=== PATIENT | male | born 1955 | race Caucasian/White ===

== ENCOUNTER → 2019-07-20 16:43 | Outpatient (BNVA) | payer MEDICAID, SELFPAY | PROVIDERS: Family Provider Nurse Practitioner Family; PCP Nurse Practitioner; Visit Provider Nurse Practitioner | DX: E11.65 Type 2 diabetes mellitus with hyperglycemia (principal); J43.9 Emphysema, unspecified; F41.9 Anxiety disorder, unspecified; F32.9 Major depressive disorder, single episode, unspecified; J30.2 Other seasonal allergic rhinitis | CPT/HCPCS: 80053; 80061; 81000; 83036 ==

== ENCOUNTER → 2019-11-02 14:58 | Outpatient (BNVA) | payer MEDICAID, SELFPAY | PROVIDERS: Family Provider Nurse Practitioner Family; PCP Nurse Practitioner; Visit Provider Nurse Practitioner | DX: E11.65 Type 2 diabetes mellitus with hyperglycemia (principal); J43.9 Emphysema, unspecified; J30.2 Other seasonal allergic rhinitis; F41.9 Anxiety disorder, unspecified; F32.9 Major depressive disorder, single episode, unspecified; K21.9 Gastro-esophageal reflux disease without esophagitis; Z23 Encounter for immunization | CPT/HCPCS: 80053; 81000; 83036 ==

== ENCOUNTER → 2020-09-19 14:55 | Outpatient (BNVA) | payer MEDICAID, SELFPAY | PROVIDERS: Family Provider Nurse Practitioner Family; PCP Nurse Practitioner; Visit Provider Nurse Practitioner Family | DX: E11.65 Type 2 diabetes mellitus with hyperglycemia (principal); E78.2 Mixed hyperlipidemia; K21.9 Gastro-esophageal reflux disease without esophagitis; J43.9 Emphysema, unspecified; J30.2 Other seasonal allergic rhinitis | CPT/HCPCS: 80053; 80061; 83036; 84443; 85025 ==

== ENCOUNTER → 2021-03-04 15:44 | Outpatient (BNVA) | payer MEDICAID, SELFPAY | PROVIDERS: Family Provider Nurse Practitioner Family; PCP Nurse Practitioner; Visit Provider Nurse Practitioner | DX: E78.2 Mixed hyperlipidemia (principal); E11.65 Type 2 diabetes mellitus with hyperglycemia; J43.9 Emphysema, unspecified; J30.2 Other seasonal allergic rhinitis; F41.9 Anxiety disorder, unspecified; F32.9 Major depressive disorder, single episode, unspecified; K21.9 Gastro-esophageal reflux disease without esophagitis | CPT/HCPCS: 80053; 80061; 81000; 83036 ==

== ENCOUNTER → 2021-06-03 15:29 | Outpatient (BNVA) | payer MEDICAID, SELFPAY | PROVIDERS: Family Provider Nurse Practitioner Family; PCP Nurse Practitioner; Visit Provider Nurse Practitioner | DX: E11.65 Type 2 diabetes mellitus with hyperglycemia (principal); K21.9 Gastro-esophageal reflux disease without esophagitis; J43.9 Emphysema, unspecified; E78.2 Mixed hyperlipidemia; J30.2 Other seasonal allergic rhinitis; F41.9 Anxiety disorder, unspecified; F32.9 Major depressive disorder, single episode, unspecified | CPT/HCPCS: 80053; 80061; 81000; 83036 ==

== ENCOUNTER → 2021-11-10 16:31 | Outpatient (BNVA) | payer MEDICAID, SELFPAY | PROVIDERS: Family Provider Nurse Practitioner Family; PCP Nurse Practitioner; Visit Provider Nurse Practitioner | DX: J43.9 Emphysema, unspecified (principal); E78.2 Mixed hyperlipidemia; E11.65 Type 2 diabetes mellitus with hyperglycemia; K21.9 Gastro-esophageal reflux disease without esophagitis; J30.2 Other seasonal allergic rhinitis; F41.9 Anxiety disorder, unspecified; F32.9 Major depressive disorder, single episode, unspecified | CPT/HCPCS: 80053; 80061; 81000; 83036 ==

== ENCOUNTER → 2022-03-05 14:57 | Outpatient (BNVA) | payer MEDICAID, SELFPAY | PROVIDERS: Family Provider Nurse Practitioner Family; PCP Nurse Practitioner; Visit Provider Nurse Practitioner | DX: E11.65 Type 2 diabetes mellitus with hyperglycemia (principal) | CPT/HCPCS: 80053; 80061; 81000; 83036 ==

== ENCOUNTER → 2022-06-11 14:28 | Outpatient (BNVA) | payer MEDICAID, SELFPAY | PROVIDERS: Family Provider Nurse Practitioner Family; PCP Nurse Practitioner; Visit Provider Nurse Practitioner | DX: E11.65 Type 2 diabetes mellitus with hyperglycemia (principal) | CPT/HCPCS: 80053; 80061; 81000; 83036 ==

== ENCOUNTER → 2022-08-24 16:25 | Outpatient (BNVA) | payer MEDICAID, SELFPAY | PROVIDERS: Family Provider Nurse Practitioner Family; PCP Nurse Practitioner; Visit Provider Nurse Practitioner | DX: E11.65 Type 2 diabetes mellitus with hyperglycemia (principal) | CPT/HCPCS: 80053; 80061; 81000; 83036 ==

== ENCOUNTER → 2022-11-16 15:05 | Outpatient (BNVA) | payer MEDICAID, SELFPAY | PROVIDERS: Family Provider Nurse Practitioner Family; PCP Nurse Practitioner; Visit Provider Nurse Practitioner | DX: E11.65 Type 2 diabetes mellitus with hyperglycemia (principal); J43.9 Emphysema, unspecified; E78.2 Mixed hyperlipidemia; K21.9 Gastro-esophageal reflux disease without esophagitis; J30.2 Other seasonal allergic rhinitis; F41.9 Anxiety disorder, unspecified; F32.9 Major depressive disorder, single episode, unspecified | CPT/HCPCS: 80053; 81000; 83036; 86705; 86706; 86709; 86803; 87340 ==

== ENCOUNTER → 2022-11-19 11:59 | Outpatient (BNVA) | payer MEDICAID, SELFPAY | PROVIDERS: Family Provider Nurse Practitioner Family; PCP Nurse Practitioner; Visit Provider Nurse Practitioner | DX: E11.65 Type 2 diabetes mellitus with hyperglycemia (principal); J43.9 Emphysema, unspecified; E78.2 Mixed hyperlipidemia; K21.9 Gastro-esophageal reflux disease without esophagitis; J30.2 Other seasonal allergic rhinitis; F41.9 Anxiety disorder, unspecified; F32.9 Major depressive disorder, single episode, unspecified; E78.5 Hyperlipidemia, unspecified; R74.01 Elevation of levels of liver transaminase levels | CPT/HCPCS: 87522 ==

== ENCOUNTER → 2023-05-05 15:54 | Outpatient (BNVA) | payer MEDICAID, SELFPAY | PROVIDERS: Family Provider Nurse Practitioner Family; PCP Nurse Practitioner; Visit Provider Nurse Practitioner | DX: E11.65 Type 2 diabetes mellitus with hyperglycemia (principal); E78.2 Mixed hyperlipidemia | CPT/HCPCS: 80053; 80061; 81000; 83036 ==

== ENCOUNTER → 2023-12-28 16:37 | Outpatient (BNVA) | payer MEDICAID, SELFPAY | PROVIDERS: Family Provider Nurse Practitioner Family; PCP Nurse Practitioner; Visit Provider Nurse Practitioner | DX: E11.9 Type 2 diabetes mellitus without complications (principal) | CPT/HCPCS: 80053; 80061; 82607; 83036 ==

== ENCOUNTER → 2024-03-28 16:19 | Outpatient (BNVA) | payer MEDICAID, SELFPAY | PROVIDERS: Family Provider Nurse Practitioner Family; PCP Nurse Practitioner; Visit Provider Nurse Practitioner | DX: E78.2 Mixed hyperlipidemia (principal); E11.65 Type 2 diabetes mellitus with hyperglycemia | CPT/HCPCS: 80053; 80061; 83036 ==

== ENCOUNTER → 2024-07-13 15:46 | Outpatient (BNVA) | payer MEDICAID, SELFPAY | PROVIDERS: Family Provider Nurse Practitioner Family; PCP Nurse Practitioner; Visit Provider Nurse Practitioner | DX: E11.65 Type 2 diabetes mellitus with hyperglycemia (principal); E78.2 Mixed hyperlipidemia; Z12.5 Encounter for screening for malignant neoplasm of prostate | CPT/HCPCS: 80053; 81000; 83036; G0103 ==

== ENCOUNTER 2024-08-11 22:20 | Emergency (ER) | payer MEDICAID, SELFPAY ==
--- OUTSIDE RECORDS SUMMARY | 2024-08-11 22:29 | XMS_ITS | Clinical Summary ---
Author Organization [facility] Address [address] [place] [address] Phone Care Team Providers Care Operational Assistant Name Role Phone Unavailable Primary Care Provider Unavailabl e Allergies Active Allergy Reactions Criticality Noted Date Comments Aspirin Rash Low 06/12/2015 Penicillins Swelling Low 06/12/2015 Medications oxyCODONE-aceta minophen (PERCOCET) 5-325 mg tablet Take 1 Tablet by mouth every 4 hours as needed for Pain, Moderate. Active pravastatin (PRAVACHOL) 80 mg tablet Take 80 mg by mouth Daily LATE. Active sertraline (ZOLOFT) 100 mg tablet Take 100 mg by mouth daily. Active ranitidine (ZANTAC) 300 mg tablet Take 300 mg by mouth 2 times daily. Active ALPRAZolam (XANAX) 1 mg tablet Take 1 mg by mouth 3 times daily as needed for Anxiety. Active albuterol HFA 90 mcg inhaler Take 2 Puffs by inhalation every 6 hours as needed for Shortness of Breath. Active predniSONE (DELTASONE) 20 mg tablet Take 2 Tablet (40 mg) by mouth 2 times daily with meals. 28 Tablet None 6 Active HYDROcodone-crow taminophen (NORCO) 5-325 mg tablet Take 1 Tablet by mouth every 4 hours as needed for Pain, Moderate. Max Daily Amount: 6 Tablet 12 Tablet None 6 Active HYDROcodone-crow taminophen (NORCO) 5-325 mg tablet Take 1 Tablet by mouth every 4 hours as needed for Pain, Moderate. Max Daily Amount: 6 Tablet 4 Tablet None 6 Active Active Problems Problem Noted Date Diagnosed Date Cigarette dependence 06/12/2015 Social History Tobacco Use Types Packs/Day Years Used Date Smoking Tobacco: Every Day Cigarettes Alcohol Use Standard Drinks/Week Comments No 0 (1 standard drink = 0.6 oz pur e alcohol) Sex and Gender Information Value Date Recorded Sex Assigned at Not on file Legal Sex Male 7:26 PM CDT Gender Identity Not on file Sexual Orientation Not on file Last Filed Vital Signs Vital Sign Reading Time Taken Comments Blood Pressure 154/94 06/12/2015 8:37 PM CDT Pulse 106 06/12/2015 8:14 PM CDT Temperature 37.5 C (99.5 F) 06/12/2015 8:31 PM CDT Respiratory Rate 20 06/12/2015 8:37 PM CDT Oxygen Saturation 92% 06/12/2015 8:37 PM CDT Inhaled Oxygen Concentration - - Weight 80.3 kg (177 lb) 06/12/2015 7:31 PM CDT Height 168.9 cm (5' 6.5 ) 06/12/2015 7:31 PM CDT Body Mass Index 28.14 06/12/2015 7:31 PM CDT Plan of Treatment Health Maintenance Due Date Last Done Comments DTAP/TDAP/TD VACCINES (1 - Tdap) 09/05/1975 COLORECTAL SCREENING 2001 Colorectal Cancer Screening 2001 FIT-DNA Q 3 years 2001 FIT/FOBT Q 1 year 2001 Flex Sig/CT Colonography Q 5 years 2001 PNEUMOCOCCAL VACCINE 50+ YEARS (1 of 1 - PCV) 09/05/19 07 ZOSTER VACCINE (1 of 2) 2006 INFLUENZA VACCINE (#1) 2023 RSV VACCINE (60+ or ) (1 - 1-dose 75+ series) 09/05/2031
--- OUTSIDE RECORDS SUMMARY | 2024-08-11 22:29 | XMS_ITS | Clinical Summary ---
Author Organization [facility] Address [address] 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 Active sertraline HCl (ZOLOFT ORAL) Take 1 Tablet by mouth daily. Active OTHER Take 1 Tablet by mouth daily. Cholesterol medication does not know the name or dose Active OTHER Take 1 Tablet by mouth daily. Blood thinner does not know the name or dose Active nitroglycerin (NITROSTAT) 0.4 mg Tablet, Sublingual Place 0.4 mg under tongue every 5 minutes as needed for Chest Pain. Active famotidine (PEPCID) 20 mg tablet Take 20 mg by mouth 2 times daily. Active albuterol sulfate 90 mcg/Actuation inhaler Take 2 Puffs by inhalation every 4 hours as needed for Shortness of Breath. Active albuterol (PROVENTIL,DUYEN EVAN) 2.5 mg /3 mL (0.083 %) Solution for Nebulization Take 2.5 mg by inhalation 3 times daily. Active budesonide/formo terol fumarate (SYMBICORT INHALATION) Take by inhalation daily. Does not know the dose Active HYDROcodone-acet aminophen (NORCO) 5-325 mg tablet Take 1 Tablet by mouth every 4 hours as needed for Pain, Moderate. Max Daily Amount: 6 Tablet 4 Tablet None 6 Active pravastatin (PRAVACHOL) 80 mg tablet Take 80 mg by mouth Daily LATE. 6 Active raNITIdine (ZANTAC) 300 mg tablet Take 300 mg by mouth 2 times daily. 6 Active HYDROcodone-acet aminophen (NORCO) 5-325 mg tablet Take 1 Tablet by mouth every 4 hours as needed for Pain, Moderate. Max Daily Amount: 6 Tablet 12 Tablet None 6 Active sertraline (ZOLOFT) 100 mg tablet Take 100 mg by mouth daily. 6 Active predniSONE (DELTASONE) 20 mg tablet Take 2 Tablet (40 mg) by mouth 2 times daily with meals. 28 Tablet None 6 Active oxyCODONE-acetam inophen (PERCOCET) 5-325 mg tablet Take 1 Tablet by mouth every 4 hours as needed for Pain, Moderate. 6 Active ALPRAZolam (XANAX) 1 mg tablet Take 1 mg by mouth 3 times daily as needed for Anxiety. 6 Active albuterol sulfate HFA 90 mcg/actuation aerosol inhaler Take 2 Puffs by inhalation every 6 hours as needed for Shortness of Breath. 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 Gender Identity Not on file Sexual Orientation Not on file Last Filed Vital Signs Vital Sign Reading Time Taken Comments Blood Pressure 119/68 08/01/2021 8:48 PM CDT Pulse 88 08/01/2021 6:30 PM CDT Temperature 36.4 C (97.6 F) 08/01/2021 5:55 PM CDT Respiratory Rate 20 08/01/2021 8:48 PM CDT Oxygen Saturation 98% 08/01/2021 8:48 PM CDT Inhaled Oxygen Concentration - - Weight 69.1 kg (152 lb 6.4 oz) 08/01/2021 5:55 P M CDT Height 170.2 cm (5' 7 ) 08/01/2021 5:55 PM CDT Body Mass Index 23.87 08/01/2021 5:55 PM CDT Plan of Treatment Health Maintenance Due Date Last Done Comments DTAP/TDAP/TD VACCINES (1 - Tdap) 09/05/1975 PNEUMOCOCCAL VACCINE 50+ YEARS (1 of 2 - PCV) 09/04/18 76 COLORECTAL SCREENING 2001 Colorectal Cancer Screening 2001 FIT-DNA Q 3 years 2001 FIT/FOBT Q 1 year 2001 Flex Sig/CT Colonography Q 5 years 2001 ZOSTER VACCINE (1 of 2) 2006 INFLUENZA VACCINE (#1) 2023 RSV VACCINE (60+ or ) (1 - 1-dose 75+ series) 09/05/[address] [place] [address] MEDICAID [place]
[2024-08-11 22:56] VITALS: BP 137/93; PULSE 112; RESP 18; TEMP 36.3; O2SAT 97; BMI 26.3
--- NOTE | 2024-08-12 00:06 | XRR_ITS ---
PROCEDURE INFORMATION: Exam: XR Right Knee Exam date and time: 08/12/2024 12:08 AM Age: 68 years old Clinical indication: Injury or trauma; Fall; Blunt trauma; Knee; Right TECHNIQUE: Imaging protocol: Radiologic exam of the right knee. Views: 3 views. COMPARISON: No relevant prior studies available. FINDINGS: Bones/joints: No acute fracture. No dislocation. Normal bone mineralization. No joint effusion. Joint spaces are maintained. There is a fabella in the soft tissues posterior to the knee. Mild degenerative change at the patellofemoral compartment. Soft tissues: No soft tissue swelling/emphysema. No radiopaque foreign body. Vasculature: Moderate atherosclerotic changes in the visualized arteries. XR/XR knee RT 3V* [id number] IMPRESSION: 1. No acute fracture of the right knee. Followup radiographs recommended in 7-14 days if clinical concern for fracture persists. 2. Incidental/nonacute findings are listed in the report.
[2024-08-12] MEDS: TRAMadol 50 mg Tablet PO (00:54)
[2024-08-12 01:11] VITALS: BP 129/72; PULSE 96; O2SAT 98
--- NOTE | 2024-08-12 06:48 | W.ED.EXTPRO ---
HPI - Extremity Problem General: Chief complaint: Extremity Injury, Lower Stated complaint: R knee injury Time Seen by Provider: 08/12/24 00:22 History of Present Illness: 68 yo M with history of chronic right leg pain and reported arthritis presents after sustaining trauma to the right knee at a store when a crate containing multiple 2-liter sodas fell and struck his knee. The impact caused him to nearly fall, but he caught himself on a freezer. He has not attempted to walk since the incident due to concern for further injury. He reports significant pain and visible swelling and bruising at the site of impact. He has a longstanding history of right leg pain extending from ankle to hip, with difficulty walking, especially up hills, and sometimes requiring him to crawl up stairs. He states his doctor previously attributed his symptoms to arthritis, but he feels the pain is severe and limits his mobility. No mention of other acute symptoms. Related Data Previous Rx's ?Medication ?Instructions ?Recorded lancets 33 gauge (OneTouch Delica #100 ea 06/03/21 Lancets) blood sugar diagnostic (Blood #100 ea 11/10/21 Glucose Test strips) Disposable nebulizer circuit #1 ea 12/28/23 nitroglycerin 0.4 mg sublingual 0.4 mg sublingual Q5M PRN chest 03/28/24 tablet (Nitrostat) pain #25 tabs acetylcysteine 600 mg capsule 600 mg PO BID #60 caps 07/13/24 albuterol sulfate 2.5 mg/3 mL 2.5 mg (3 mL) inhalation Q4H PRN 07/13/24 (0.083 %) solution for nebulization shortness of breath or wheezing #75 mL albuterol sulfate 90 mcg/actuation 2 puff inhalation QID PRN 07/13/24 aerosol inhaler shortness of breath or wheezing #6.7 grams empagliflozin 25 mg tablet 25 mg PO QAM #30 tabs 07/13/24 (Jardiance) famotidine 40 mg tablet (Pepcid) 40 mg PO BID #60 tabs 07/13/24 glipizide 10 mg tablet, extended 10 mg PO DAILY #30 tabs 07/13/24 release 24 hr levocetirizine 5 mg tablet 5 mg PO DAILY #30 tabs 07/13/24 lisinopril 5 mg tablet 5 mg PO DAILY #30 tabs 05/29/25 metformin 500 mg tablet,extended 2,000 mg (4 x 500 mg) PO DAILY 07/13/24 release 24 hr #120 tabs mometasone-formoterol HFA 100 2 puff inhalation Q12H #13 grams 07/13/24 mcg-5 mcg/actuation aerosol inhaler (Dulera) rosuvastatin 40 mg tablet (Crestor) 40 mg PO DAILY #30 tabs 07/13/24 sertraline 100 mg tablet 100 mg PO DAILY #30 tabs 07/13/24 semaglutide 0.25 mg or 0.5 mg (2 See Rx Instructions SUBCUT .week 07/14/24 mg/3 mL) subcutaneous pen injector #3 mL (Ozempic) tramadol 50 mg tablet 50 mg PO TID PRN pain #10 tabs 08/12/24 Allergies Allergy/AdvReac Type Severity Reaction Status Date / Time Penicillins Allergy Unknown Verified 07/13/24 15:13 aspirin AdvReac ADR-Itching Verified 07/13/24 15:13 PFS ED PFSH: Medical History Medical marijuana use Personal history of nicotine dependence Anxiety and depression COPD (chronic obstructive pulmonary disease) with emphysema Mixed hyperlipidemia GERD (gastroesophageal reflux disease) Seasonal allergies Diabetes mellitus with hyperglycemia, without long-term current use of insulin Surgical History History of appendectomy Family History Other Cancer Diabetes Social History Smoking and tobacco/nicotine status: current every day tobacco/nicotine user Second hand smoke exposure: Yes Alcohol intake: unknown Substance/Drug Use: current Caregiver/support person: No Lives independently: Yes Household members: spouse Housing: House Marital status: Current occupational status: disabled Do you think of yourself as: Straight/Heterosexual Current gender identity: Male Physical Exam Const: COMMON NORMALS: no acute distress, patient oriented x3 and alert HENMT: COMMON NORMALS: normocephalic and atraumatic HEAD & SCALP: normocephalic and atraumatic Eye: COMMON NORMALS: Equal, round and reactive pupils present, EOMs intact bilaterally and no scleral icterus PUPIL: Yes Equal, round and reactive pupils present Resp: COMMON NORMALS: normal respiratory effort and No retractions Cardio: COMMON NORMALS: regular rate, regular rhythm and No murmurs present (Cardio) RATE: regular rate RHYTHM: regular rhythm GI: COMMON NORMALS: Normal to inspection, nondistended, normoactive bowel sounds present, Soft to palpation and non-tender PALPATION: Yes Soft to palpation Extremity: OTHER: Mild tenderness and swelling of the tibial plateau of the right affected knee along the medial aspect. No bruising or redness or deformity. No ligamentous laxity of the knee. Full range of motion of the knee. Neuro: COMMON NORMALS: patient oriented x3 SENSORIUM/ORIENTATION: Yes alert Skin: COMMON NORMALS: no rashes or lesions noted GENERAL SKIN EXAM: no rashes or lesions noted Course Vital Signs: Vital signs: Vital Signs Temperature 97.4 F L 08/11/24 22:56 Pulse Rate 96 08/12/24 01:11 Respiratory Rate 18 08/11/24 22:56 Blood Pressure 129/72 08/12/24 01:11 Pulse Oximetry 98 08/12/24 01:11 MDM - Extremity (Nontraumatic) Medical Decision Making X-ray of the right knee shows nothing acute. I suspect contusion. Patient is able to walk without difficulty. He will be given crutches for pain. He will be discharged in stable condition with follow-up to primary care as needed. Lab Data Radiology Impressions Knee X-Ray 08/12/24 00:06 IMPRESSION: 1. No acute fracture of the right knee. Followup radiographs recommended in 7-14 days if clinical concern for fracture persists. 2. Incidental/nonacute findings are listed in the report. All radiology interpretation(s) finalized by discharge Discharge Plan Discharge Patient Disposition: Home Clinical Impression: Contusion of knee, right Condition: Stable Prescriptions: New tramadol 50 mg tablet 50 mg PO TID PRN (Reason: pain) Qty: 10 0RF No Action (DME) lancets [OneTouch Delica Lancets] 33 gauge misc See Rx Instructions .Route Qty: 100 3RF Rx Instructions: As directed, daily acetylcysteine 600 mg capsule 600 mg PO BID Qty: 60 2RF albuterol sulfate 2.5 mg /3 mL (0.083 %) solution for nebulization 2.5 mg inhalation Q4H PRN (Reason: shortness of breath or wheezing) Qty: 75 2RF albuterol sulfate 90 mcg/actuation HFA aerosol inhaler 2 puff inhalation QID PRN (Reason: shortness of breath or wheezing) Qty: 6.7 2RF Jardiance 25 mg tablet 25 mg PO QAM Qty: 30 2RF famotidine [Pepcid] 40 mg tablet 40 mg PO BID Qty: 60 2RF glipizide 10 mg tablet extended release 24hr 10 mg PO DAILY Qty: 30 2RF levocetirizine 5 mg tablet 5 mg PO DAILY Qty: 30 2RF lisinopril 5 mg tablet 5 mg PO DAILY Qty: 30 2RF metformin 500 mg tablet extended release 24 hr 2,000 mg PO DAILY Qty: 120 2RF Dulera 100-5 mcg/actuation HFA aerosol inhaler 2 puff inhalation Q12H Qty: 13 2RF rosuvastatin [Crestor] 40 mg tablet 40 mg PO DAILY Qty: 30 2RF sertraline 100 mg tablet 100 mg PO DAILY Qty: 30 2RF Ozempic 0.25 mg or 0.5 mg (2 mg/3 mL) pen injector See Rx Instructions SUBCUT .week Qty: 3 2RF Rx Instructions: 0.25mg for 2 weeks then increase 0.5mg subcutaneously WEEK; (DME) Blood Glucose Test Strip See Rx Instructions .Route Qty: 100 3RF Rx Instructions: As directed, daily, ONETOUCH (DME) Disposable nebulizer circuit See Rx Instructions .ROUTE .MEDSUPPLY Qty: 1 2RF Rx Instructions: As directed nitroglycerin [Nitrostat] 0.4 mg tablet, sublingual 0.4 mg SUBLINGUAL Q5M PRN (Reason: chest pain) Qty: 25 0RF Rx Instructions: do not exceed 3 doses per episode Discharge Orders: Discharge ED (Routine); Ordered 08/12/24 Ordered By: Everton Posadas Referrals: Kesha Ortiz, BRICK GRADER-C [Primary Care Provider, Family Practice] Rebeca Byrd FNP [Family Provider, Nurse Practitioner] Discharge Diet: Advance as tolerated Discharge Activity: Increase activity as tolerated Patient Instructions: Contusion, Pain Management, Patient Portal & [facility] Instructions Activity Restrictions/Additional Instructions: x-ray shows no fractures. exam is reassuring that ACL,PCL, LCL, MCL are intact with no ligamentous laxity. The medial tibial plateau is swollen with tenderness but that should get better with time without need for further intervention Print Language: Korean Coding Level of Care Code ED Supervisor [facility] Department for Alisha Morton
== END 2024-08-12 01:10 | disposition home or self-care (01) ==
PROVIDERS: Emergency Provider Student in an Organized Health Care Education/Training Program; Family Provider Nurse Practitioner Family; PCP Nurse Practitioner
DX: S80.01XA Contusion of right knee, initial encounter (principal); Z79.84 Long term (current) use of oral hypoglycemic drugs; Z72.0 Tobacco use; J44.9 Chronic obstructive pulmonary disease, unspecified; E11.9 Type 2 diabetes mellitus without complications; E78.2 Mixed hyperlipidemia; W22.8XXA Striking against or struck by other objects, initial encounter
CPT/HCPCS: 73562; 99283; J9999

== ENCOUNTER → 2024-10-05 16:38 | Outpatient (BNVA) | payer MEDICAID, SELFPAY | PROVIDERS: Family Provider Nurse Practitioner Family; PCP Nurse Practitioner; Visit Provider Nurse Practitioner | DX: E11.65 Type 2 diabetes mellitus with hyperglycemia (principal); E78.2 Mixed hyperlipidemia | CPT/HCPCS: 80053; 80061; 82043; 83036 ==

== ENCOUNTER → 2024-12-12 16:30 | Outpatient (BNVA) | payer MEDICAID, SELFPAY | PROVIDERS: Family Provider Nurse Practitioner Family; PCP Nurse Practitioner; Visit Provider Nurse Practitioner | DX: E11.65 Type 2 diabetes mellitus with hyperglycemia (principal) | CPT/HCPCS: 80053; 81000; 82043; 83036 ==

== ENCOUNTER 2024-12-26 15:21 | Outpatient (CLI) | payer MEDICAID, SELFPAY ==
--- NOTE | 2024-12-26 15:15 | USR_ITS ---
PROCEDURE INFORMATION: Exam: US Duplex Right Lower Extremity Arteries Or Arterial Bypass Grafts Exam date and time: 12/26/2024 3:40 PM Age: 69 years old Clinical indication: Pain; Leg, lower; Right; Additional info: M54.50 - low back pain, unspecified TECHNIQUE: Imaging protocol: Right Real-time duplex scan of the arteries or arterial bypass grafts of the right lower extremity with 2-D lynne scale, color Doppler flow and spectral waveform analysis. Images documented and saved. COMPARISON: CR XR knee RT 3V* [id number] 08/12/2024 12:08 AM FINDINGS: Triphasic waveforms in the right proximal/mid/distal iliac arteries with peak velocities ranging between 121-139 cm/s, which is within the normal range. Right common femoral artery: Right common femoral artery is patent with triphasic waveforms and peak velocity of 117 cm/s, within normal limits. Right superficial femoral artery: Diminutive blood flow seen within the right proximal and mid superficial femoral artery on color Doppler imaging. Spectral analysis demonstrates monophasic waveforms in these vessels with peak systolic velocities between 79-95 cm/s. The right distal superficial femoral artery, popliteal, posterior tibial and dorsalis pedis arteries are patent, however monophasic waveforms are seen within all of these vessels as well, with peak systolic velocities measuring between 27-73 cm/s. Right JENNA is 0.59, which is in the range of moderate peripheral artery disease. Soft tissues: No hematoma or collection identified. US/[place] [id number] IMPRESSION: 1. Right ankle-brachial index is 0.59, which is in the moderate peripheral artery disease range. 2. Abnormal monophasic waveforms in the right lower extremity arteries extending from the proximal superficial femoral artery through the dorsalis pedis artery. Only diminutive blood flow was seen within the right proximal and mid superficial femoral artery on color Doppler imaging, however these vessels do appear to remain patent on the spectral analysis. Degree of stenosis is difficult to determine, as the peak systolic velocities of the right lower extremity arteries were within the normal range. If clinically warranted, follow-up CTA could be obtained to further evaluate and better determine degree of stenosis. 3. The right iliac and common femoral arteries are patent and demonstrate normal waveforms.
--- NOTE | 2024-12-26 15:26 | XRR_ITS ---
PROCEDURE INFORMATION: Exam: XR Lumbosacral Spine Exam date and time: 12/26/2024 3:40 PM Age: 69 years old Clinical indication: Low back pain; Pain in lower back that runs down posterior legs to knees; Additional info: M54.50 - low back pain, unspecified TECHNIQUE: Imaging protocol: Radiologic exam of the lumbosacral spine. Views: 2 or 3 views. COMPARISON: No relevant prior studies available. FINDINGS: Bones/joints: Straightening of the lumbar lordosis. Vertebral body heights are maintained. No acute displaced fracture. Posterior elements are aligned. No acute traumatic subluxation. Mild endplate degenerative changes. Mild disc bulge/protrusion at L3-L4. Soft tissues: Unremarkable. XR/XR lumbar spine 2-3V* [id number] IMPRESSION: No acute displaced fracture or traumatic subluxation.
== END 2024-12-26 15:22 | disposition home or self-care (01) ==
LOC: RAD 15:22
PROVIDERS: PCP Nurse Practitioner; Visit Provider Nurse Practitioner
DX: M54.50 Low back pain, unspecified (principal); M79.604 Pain in right leg; M51.369 Other intervertebral disc degeneration, lumbar region without mention of lumbar back pain or lower extremity pain; M40.56 Lordosis, unspecified, lumbar region; M51.361 Other intervertebral disc degeneration, lumbar region with lower extremity pain only; R93.6 Abnormal findings on diagnostic imaging of limbs; I73.9 Peripheral vascular disease, unspecified
CPT/HCPCS: 72100; 93926